=== PATIENT | male | born 1950 | race Caucasian/White ===

== ENCOUNTER 2021-05-17 13:46 | Observation (INO) ==
[2021-05-17] MEDS ORDERED: Isovue-370 500 ML BOTTLE IVP ONE (15:59)
[2021-05-17] MEDS ORDERED: Ipratropium/Albuterol Neb 3 ML IH ONE (15:59)
[2021-05-17 16:25] LABS: Basophils % 0.1 %; Immature Granulocytes % 0.8 % (0-4); Lymphocytes # 0.2 K/mcL (0.6-4.6); Lymphocytes % 1.4 %; Mean Corpuscular Hemoglobin 32.6 pg (28.0-33.3); Mean Corpuscular Volume 95.7 fL (83.0-100.0); Mean Platelet Volume 9.9 fL (9.4-12.4); Monocytes # 0.2 K/mcL (0.0-1.3); Monocytes % 1.6 %; Neutrophils # 14.6 K/mcL (1.6-8.9); Platelet Count 218 K/mcL (140-400); Red Blood Count 4.91 M/mcL (4.19-5.50); Red Cell Distribution Width 13.1 % (11.5-14.5); Segmented Neutrophils % 96.1 %; White Blood Count 15.2 K/mcL (4.3-11.1)
[2021-05-17 17:02] LABS: VBG HCO3 30 mEq/L (21-27); VBG PCO2 58 mmHg (41-51); VBG PH 7.32 pH Units (7.32-7.42); VBG PO2 34 mmHg (25-50)
[2021-05-17 17:04] LABS: Alanine Aminotransferase 25 Units/L (7-52); Albumin 4.6 g/dL (3.5-5.7); Alkaline Phosphatase 74 Units/L (34-104); Aspartate Amino Transferase 15 Units/L (13-39); BUN/Creatinine Ratio 20 (6-26); Bilirubin,Total 0.7 mg/dL (0.3-1.0); Blood Urea Nitrogen 13 mg/dL (8-23); Calcium 9.9 mg/dL (8.6-10.3); Carbon Dioxide 25 mEq/L (23-29); Chloride 100 mEq/L (98-107); Glucose 135 mg/dL (70-105); Osmolality,Calculated 284 (280-300); Potassium 4.6 mEq/L (3.5-5.1); Sodium 136 mEq/L (136-145); Troponin I 0.04 ng/mL (< 0.04); eGFR For African Americans > 60 (> 60); eGFR For Non-African Americans > 60 (> 60)
[2021-05-17 17:06] LABS: Albumin/Globulin Ratio 1.8 (1.1-2.2); Bilirubin,Direct 0.2 mg/dL (0.0-0.2); Bilirubin,Indirect 0.5 mg/dL (0.0-1.0); Globulin 2.6 g/dL (2.4-3.5); Total Protein 7.2 g/dL (6.4-8.9)
[2021-05-17 19:18] LABS: Influenza A PCR Negative (Negative); Influenza B PCR Negative (Negative); Resp. Syncytial Virus PCR Negative (Negative); SARS-CoV-2 by PCR (In House) Negative (Negative)
[2021-05-17] MEDS ORDERED: Ondansetron 4 MG/2 ML VIAL IVP PRN (21:00)
[2021-05-17] MEDS ORDERED: Naloxone 0.4 MG/ML INJ IVP PRN (21:00)
[2021-05-18] MEDS: Ipratropium/Albuterol Neb 3 ML IH SCH ×7 (00:02→23:21)
[2021-05-18] MEDS: Azithromycin 500 MG in 0.9 % Sodium Chloride 250 ML IVPB SCH ×2 (00:32→23:45)
[2021-05-18] MEDS: cefTRIAXone 1,000 MG in 0.9 % Sodium Chloride Mini Bag 100 ML IVPB SCH ×2 (00:33→23:35)
[2021-05-18] MEDS: MethylPREDNISolone 40 MG/ML VIAL IVP SCH ×5 (00:33→23:34)
[2021-05-18 02:41] LABS: Basophils % 0.1 %; Hematocrit 38.6 % (37.5-50.1); Immature Granulocytes % 0.7 % (0-4); Lymphocytes # 0.9 K/mcL (0.6-4.6); Lymphocytes % 8.6 %; Mean Corpuscular Hemoglobin 33.3 pg (28.0-33.3); Mean Corpuscular Volume 95.1 fL (83.0-100.0); Monocytes # 0.9 K/mcL (0.0-1.3); Neutrophils # 8.6 K/mcL (1.6-8.9); Platelet Count 215 K/mcL (140-400); Red Blood Count 4.06 M/mcL (4.19-5.50); Segmented Neutrophils % 81.6 %; White Blood Count 10.5 K/mcL (4.3-11.1)
[2021-05-18 02:59] LABS: Hemoglobin 13.5 g/dL (12.9-16.9)
[2021-05-18 03:03] LABS: Alanine Aminotransferase 19 Units/L (7-52); Albumin 3.6 g/dL (3.5-5.7); Albumin/Globulin Ratio 1.7 (1.1-2.2); Alkaline Phosphatase 60 Units/L (34-104); Aspartate Amino Transferase 12 Units/L (13-39); BUN/Creatinine Ratio 24 (6-26); Bilirubin,Total 0.4 mg/dL (0.3-1.0); Blood Urea Nitrogen 16 mg/dL (8-23); Calcium 8.9 mg/dL (8.6-10.3); Carbon Dioxide 26 mEq/L (23-29); Chloride 102 mEq/L (98-107); Globulin 2.1 g/dL (2.4-3.5); Glucose 144 mg/dL (70-105); Osmolality,Calculated 288 (280-300); Potassium 3.9 mEq/L (3.5-5.1); Sodium 137 mEq/L (136-145); Total Protein 5.7 g/dL (6.4-8.9); eGFR For African Americans > 60 (> 60); eGFR For Non-African Americans > 60 (> 60)
[2021-05-18] MEDS: *HR* Heparin 5,000 UNIT/ML VIAL SQ SCH ×3 (06:36→22:24)
[2021-05-18] MEDS ORDERED: Azithromycin 500 MG in 0.9 % Sodium Chloride 250 ML IVPB SCH (09:00)
[2021-05-19 02:18] LABS: Basophils % 0.1 %; Hematocrit 39.4 % (37.5-50.1); Immature Granulocytes % 0.8 % (0-4); Lymphocytes # 0.5 K/mcL (0.6-4.6); Lymphocytes % 5.1 %; Mean Corpuscular Hemoglobin 31.8 pg (28.0-33.3); Mean Corpuscular Volume 96.3 fL (83.0-100.0); Mean Platelet Volume 9.8 fL (9.4-12.4); Monocytes # 0.5 K/mcL (0.0-1.3); Monocytes % 5.2 %; Neutrophils # 9.1 K/mcL (1.6-8.9); Platelet Count 236 K/mcL (140-400); Red Blood Count 4.09 M/mcL (4.19-5.50); Red Cell Distribution Width 12.9 % (11.5-14.5); Segmented Neutrophils % 88.8 %; White Blood Count 10.3 K/mcL (4.3-11.1)
[2021-05-19 02:38] LABS: BUN/Creatinine Ratio 30 (6-26); Blood Urea Nitrogen 20 mg/dL (8-23); Carbon Dioxide 27 mEq/L (23-29); Chloride 104 mEq/L (98-107); Glucose 167 mg/dL (70-105); Osmolality,Calculated 290 (280-300); Sodium 137 mEq/L (136-145); eGFR For African Americans > 60 (> 60); eGFR For Non-African Americans > 60 (> 60)
[2021-05-19] MEDS: Ipratropium/Albuterol Neb 3 ML IH SCH ×6 (03:56→23:25)
[2021-05-19] MEDS: *HR* Heparin 5,000 UNIT/ML VIAL SQ SCH ×3 (04:45→21:27)
[2021-05-19] MEDS: MethylPREDNISolone 40 MG/ML VIAL IVP SCH ×3 (04:45→16:53)
[2021-05-20] MEDS: MethylPREDNISolone 40 MG/ML VIAL IVP SCH ×4 (00:29→17:30)
[2021-05-20] MEDS: Azithromycin 500 MG in 0.9 % Sodium Chloride 250 ML IVPB SCH (00:29)
[2021-05-20] MEDS: cefTRIAXone 1,000 MG in 0.9 % Sodium Chloride Mini Bag 100 ML IVPB SCH (00:30)
[2021-05-20] MEDS: Ipratropium/Albuterol Neb 3 ML IH SCH ×5 (04:19→20:04)
[2021-05-20] MEDS: *HR* Heparin 5,000 UNIT/ML VIAL SQ SCH ×3 (05:35→20:49)
[2021-05-20 06:32] LABS: Basophils % 0.1 %; Hematocrit 40.9 % (37.5-50.1); Hemoglobin 13.3 g/dL (12.9-16.9); Immature Granulocytes % 0.7 % (0-4); Lymphocytes # 0.8 K/mcL (0.6-4.6); Lymphocytes % 7.7 %; Mean Corpuscular HGB Conc 32.5 g/dL (31.6-35.5); Mean Corpuscular Hemoglobin 31.3 pg (28.0-33.3); Mean Corpuscular Volume 96.2 fL (83.0-100.0); Mean Platelet Volume 9.9 fL (9.4-12.4); Monocytes # 0.6 K/mcL (0.0-1.3); Monocytes % 6.3 %; Neutrophils # 8.3 K/mcL (1.6-8.9); Platelet Count 234 K/mcL (140-400); Red Blood Count 4.25 M/mcL (4.19-5.50); Red Cell Distribution Width 13.1 % (11.5-14.5); Segmented Neutrophils % 85.2 %; White Blood Count 9.8 K/mcL (4.3-11.1)
[2021-05-20 06:53] LABS: BUN/Creatinine Ratio 34 (6-26); Blood Urea Nitrogen 22 mg/dL (8-23); Calcium 9.1 mg/dL (8.6-10.3); Carbon Dioxide 31 mEq/L (23-29); Chloride 104 mEq/L (98-107); Glucose 115 mg/dL (70-105); Osmolality,Calculated 294 (280-300); Potassium 4.4 mEq/L (3.5-5.1); Sodium 140 mEq/L (136-145); eGFR For African Americans > 60 (> 60); eGFR For Non-African Americans > 60 (> 60)
[2021-05-20] MEDS: Budesonide/Formoterol 160/4.5 1 PUFF INH IH SCH ×2 (11:19→20:04)
[2021-05-20] MEDS ORDERED: cefTRIAXone 1,000 MG in 0.9 % Sodium Chloride Mini Bag 100 ML IVPB SCH (21:00)
[2021-05-20] MEDS ORDERED: Azithromycin 250 MG TABLET PO SCH (21:00)
[2021-05-21] MEDS: MethylPREDNISolone 40 MG/ML VIAL IVP SCH ×4 (00:15→18:30)
[2021-05-21 02:15] LABS: Basophils % 0.1 %; Hematocrit 39.5 % (37.5-50.1); Hemoglobin 13.3 g/dL (12.9-16.9); Immature Granulocytes % 1.2 % (0-4); Lymphocytes % 12.4 %; Mean Corpuscular HGB Conc 33.7 g/dL (31.6-35.5); Mean Corpuscular Hemoglobin 32.3 pg (28.0-33.3); Mean Corpuscular Volume 95.9 fL (83.0-100.0); Mean Platelet Volume 9.8 fL (9.4-12.4); Monocytes # 0.7 K/mcL (0.0-1.3); Monocytes % 8.4 %; Platelet Count 210 K/mcL (140-400); Red Blood Count 4.12 M/mcL (4.19-5.50); Red Cell Distribution Width 12.3 % (11.5-14.5); Segmented Neutrophils % 77.9 %; White Blood Count 7.8 K/mcL (4.3-11.1)
[2021-05-21 02:35] LABS: BUN/Creatinine Ratio 32 (6-26); Blood Urea Nitrogen 18 mg/dL (8-23); Calcium 9.1 mg/dL (8.6-10.3); Carbon Dioxide 30 mEq/L (23-29); Chloride 101 mEq/L (98-107); Glucose 136 mg/dL (70-105); Osmolality,Calculated 286 (280-300); Potassium 4.3 mEq/L (3.5-5.1); Sodium 136 mEq/L (136-145); eGFR For African Americans > 60 (> 60); eGFR For Non-African Americans > 60 (> 60)
[2021-05-21] MEDS: Ipratropium/Albuterol Neb 3 ML IH SCH ×5 (03:56→15:45)
[2021-05-21] MEDS: *HR* Heparin 5,000 UNIT/ML VIAL SQ SCH ×2 (05:30→13:13)
[2021-05-21] MEDS: Budesonide/Formoterol 160/4.5 1 PUFF INH IH SCH (07:57)
[2021-05-21 15:43] VITALS: BP 162/76; PULSE 86; TEMP 97.7; O2SAT 97
== END 2021-05-21 18:48 | disposition home health service (06) ==
LOC: 2ANU 13:46 → EMEROOARM 13:46 → SUATTDRO 20:43 → 2ANU 21:38
PROVIDERS: ADMIT Internal Medicine; ATTEND Internal Medicine

== ENCOUNTER 2021-11-01 17:39 | Inpatient (IN) ==
[2021-11-01] MEDS ORDERED: Ipratropium/Albuterol Neb 3 ML IH ONE (18:04)
[2021-11-01] MEDS ORDERED: methylPREDNISolone 125 MG/2 ML VIAL IVP ONE (18:14)
[2021-11-01] MEDS ORDERED: Azithromycin 500 MG in 0.9 % Sodium Chloride 250 ML IVPB ONE (18:14)
[2021-11-01 18:58] LABS: Basophils % 0.2 %; Eosinophils % 0.1 %; Hematocrit 45.4 % (37.5-50.1); Hemoglobin 14.5 g/dL (12.9-16.9); Immature Granulocytes % 1.8 % (0-4); Lymphocytes # 0.6 K/mcL (0.6-4.6); Lymphocytes % 4.2 %; Mean Corpuscular HGB Conc 31.9 g/dL (31.6-35.5); Mean Corpuscular Hemoglobin 31.1 pg (28.0-33.3); Mean Corpuscular Volume 97.4 fL (83.0-100.0); Mean Platelet Volume 10.5 fL (9.4-12.4); Monocytes # 0.8 K/mcL (0.0-1.3); Monocytes % 5.4 %; Neutrophils # 12.5 K/mcL (1.6-8.9); Platelet Count 236 K/mcL (140-400); Red Blood Count 4.66 M/mcL (4.19-5.50); Red Cell Distribution Width 13.2 % (11.5-14.5); Segmented Neutrophils % 88.3 %; White Blood Count 14.2 K/mcL (4.3-11.1)
[2021-11-01 19:14] LABS: BUN/Creatinine Ratio 35 (6-26); Blood Urea Nitrogen 25 mg/dL (8-23); Calcium 9.2 mg/dL (8.6-10.3); Carbon Dioxide 38 mEq/L (23-29); Chloride 93 mEq/L (98-107); Glucose 89 mg/dL (70-105); Osmolality,Calculated 292 (280-300); Potassium 4.1 mEq/L (3.5-5.1); Sodium 139 mEq/L (136-145); eGFR For African Americans > 60 (> 60); eGFR For Non-African Americans > 60 (> 60)
[2021-11-01 19:24] LABS: Troponin I 0.22 ng/mL (< 0.04)
[2021-11-01] MEDS ORDERED: *HR* Heparin 5,000 UNIT/ML VIAL IVP PRN ×2 (19:58)
[2021-11-01] MEDS ORDERED: *HR* Heparin 5,000 UNIT/ML VIAL IVP ONE (19:58)
[2021-11-01] MEDS ORDERED: Heparin 25,000UNIT/250ML 1/2NS 25,000 UNIT/250 ML IV.SOLN IVC SCH (20:00)
[2021-11-01 20:11] LABS: Heparin anti-factor XA UFH 0.05 IU/mL (0.30-0.70)
[2021-11-01 20:12] LABS: INR 0.9
[2021-11-01 20:26] LABS: Activated Partial Thrombo Time 28.4 Seconds (26.0-36.0)
[2021-11-01] MEDS ORDERED: Acetaminophen 325 MG TABLET PO PRN (22:07)
[2021-11-01] MEDS ORDERED: Naloxone 0.4 MG/ML INJ IVP PRN (22:07)
[2021-11-01] MEDS: Levalbuterol Neb 1.25 MG/3 ML IH SCH (22:22)
[2021-11-01 22:42] LABS: ABG Base Excess 8 mEq/L (-2 to 3); ABG HCO3 35 mEq/L (21-27); ABG Oxygen Saturation 99 % (95-98); ABG PCO2 59 mmHg (35-45); ABG PH 7.39 pH Units (7.32-7.45); ABG PO2 120 mmHg (85-104); ABG TCO2 37 mEq/L (20-26)
[2021-11-01] MEDS: methylPREDNISolone 125 MG/2 ML VIAL IVP SCH (23:50)
[2021-11-02] MEDS ORDERED: Morphine Sulfate 2 MG/ML SYRINGE IVP PRN (00:47)
[2021-11-02 03:00] LABS: Hematocrit 39.6 % (37.5-50.1); Mean Corpuscular HGB Conc 32.8 g/dL (31.6-35.5); Mean Corpuscular Hemoglobin 30.5 pg (28.0-33.3); Mean Platelet Volume 10.5 fL (9.4-12.4); Platelet Count 182 K/mcL (140-400); Red Blood Count 4.26 M/mcL (4.19-5.50); Red Cell Distribution Width 13.2 % (11.5-14.5)
[2021-11-02 03:19] LABS: BUN/Creatinine Ratio 40 (6-26); Blood Urea Nitrogen 21 mg/dL (8-23); Calcium 8.7 mg/dL (8.6-10.3); Carbon Dioxide 36 mEq/L (23-29); Chloride 97 mEq/L (98-107); Chol/HDL Ratio 2.4 (0-4.9); Cholesterol 148 mg/dL (< 200); Glucose 147 mg/dL (70-105); HDL Cholesterol 61 mg/dL (40-59); LDL Cholesterol,Calculated 71 mg/dL (< 100); Magnesium 2.2 mg/dL (1.6-2.6); Osmolality,Calculated 288 (280-300); Potassium 3.8 mEq/L (3.5-5.1); Sodium 136 mEq/L (136-145); Triglycerides 78 mg/dL (< 150); eGFR For African Americans > 60 (> 60); eGFR For Non-African Americans > 60 (> 60)
[2021-11-02] MEDS: Levalbuterol Neb 1.25 MG/3 ML IH SCH ×4 (03:53→20:07)
[2021-11-02] MEDS ORDERED: Perflutren Lipid Microsphere 1.3 ML in 0.9 % Sodium Chloride 8.7 ML IVP PRN (06:59)
[2021-11-02] MEDS: methylPREDNISolone 125 MG/2 ML VIAL IVP SCH (07:52)
[2021-11-02] MEDS: Furosemide 20 MG/2 ML VIAL IVP SCH ×2 (07:53→20:56)
[2021-11-02] MEDS: Aspirin 81 MG TAB.CHEW PO SCH (13:54)
[2021-11-02] MEDS: carvediloL 6.25 MG TABLET PO SCH ×2 (13:55→17:26)
[2021-11-02] MEDS: lisinopriL 5 MG TABLET PO SCH (13:55)
[2021-11-02 16:59] LABS: Hematocrit 39.4 % (37.5-50.1); Mean Corpuscular Hemoglobin 30.7 pg (28.0-33.3); Mean Corpuscular Volume 93.1 fL (83.0-100.0); Mean Platelet Volume 10.9 fL (9.4-12.4); Platelet Count 204 K/mcL (140-400); Red Blood Count 4.23 M/mcL (4.19-5.50); Red Cell Distribution Width 13.1 % (11.5-14.5); White Blood Count 12.6 K/mcL (4.3-11.1)
[2021-11-02] MEDS: MethylPREDNISolone 40 MG/ML VIAL IVP SCH ×2 (17:26→23:11)
[2021-11-02] MEDS: Azithromycin 500 MG in 0.9 % Sodium Chloride 250 ML IVPB SCH (17:26)
[2021-11-03] MEDS: Levalbuterol Neb 1.25 MG/3 ML IH SCH ×4 (03:43→19:50)
[2021-11-03] MEDS: Furosemide 20 MG/2 ML VIAL IVP SCH ×2 (07:23→20:23)
[2021-11-03] MEDS: lisinopriL 5 MG TABLET PO SCH (07:23)
[2021-11-03] MEDS: carvediloL 6.25 MG TABLET PO SCH ×2 (07:23→16:50)
[2021-11-03] MEDS: Aspirin 81 MG TAB.CHEW PO SCH (07:24)
[2021-11-03] MEDS: *HR* Heparin 5,000 UNIT/ML VIAL SQ SCH ×3 (07:24→20:23)
[2021-11-03 07:25] LABS: Hematocrit 40.3 % (37.5-50.1); Hemoglobin 13.3 g/dL (12.9-16.9); Mean Corpuscular Hemoglobin 31.3 pg (28.0-33.3); Mean Corpuscular Volume 94.8 fL (83.0-100.0); Mean Platelet Volume 10.9 fL (9.4-12.4); Platelet Count 202 K/mcL (140-400); Red Blood Count 4.25 M/mcL (4.19-5.50); Red Cell Distribution Width 13.1 % (11.5-14.5); White Blood Count 14.5 K/mcL (4.3-11.1)
[2021-11-03 07:51] LABS: BUN/Creatinine Ratio 47 (6-26); Blood Urea Nitrogen 25 mg/dL (8-23); Calcium 8.9 mg/dL (8.6-10.3); Carbon Dioxide 39 mEq/L (23-29); Chloride 97 mEq/L (98-107); Glucose 116 mg/dL (70-105); Osmolality,Calculated 295 (280-300); Potassium 3.8 mEq/L (3.5-5.1); Sodium 140 mEq/L (136-145); Troponin I 0.09 ng/mL (< 0.04); eGFR For African Americans > 60 (> 60); eGFR For Non-African Americans > 60 (> 60)
[2021-11-03] MEDS: Azithromycin 500 MG in 0.9 % Sodium Chloride 250 ML IVPB SCH (16:50)
[2021-11-03] MEDS ORDERED: MethylPREDNISolone 40 MG/ML VIAL IVP SCH (18:00)
[2021-11-03] MEDS: Budesonide/Formoterol 160/4.5 1 PUFF INH IH SCH (20:00)
[2021-11-03] MEDS ORDERED: Ipratropium/Albuterol Neb 3 ML IH PRN (23:00)
[2021-11-04 01:43] LABS: Basophils % 0.2 %; Eosinophils % 0.1 %; Hematocrit 40.3 % (37.5-50.1); Hemoglobin 13.2 g/dL (12.9-16.9); Immature Granulocytes % 1.3 % (0-4); Lymphocytes % 8.5 %; Mean Corpuscular HGB Conc 32.8 g/dL (31.6-35.5); Mean Corpuscular Hemoglobin 31.3 pg (28.0-33.3); Mean Corpuscular Volume 95.5 fL (83.0-100.0); Mean Platelet Volume 11.1 fL (9.4-12.4); Monocytes # 0.9 K/mcL (0.0-1.3); Neutrophils # 9.2 K/mcL (1.6-8.9); Platelet Count 188 K/mcL (140-400); Red Blood Count 4.22 M/mcL (4.19-5.50); Segmented Neutrophils % 81.9 %; White Blood Count 11.2 K/mcL (4.3-11.1)
[2021-11-04 01:50] LABS: Albumin 3.3 g/dL (3.5-5.7); Albumin/Globulin Ratio 1.9 (1.1-2.2); Bilirubin,Direct 0.1 mg/dL (0.0-0.2); Bilirubin,Indirect 0.4 mg/dL (0.0-1.0); Bilirubin,Total 0.5 mg/dL (0.3-1.0); Globulin 1.7 g/dL (2.4-3.5)
[2021-11-04 01:55] LABS: BUN/Creatinine Ratio 49 (6-26); Blood Urea Nitrogen 27 mg/dL (8-23); Calcium 8.5 mg/dL (8.6-10.3); Carbon Dioxide 40 mEq/L (23-29); Chloride 96 mEq/L (98-107); Glucose 141 mg/dL (70-105); Osmolality,Calculated 295 (280-300); Potassium 3.7 mEq/L (3.5-5.1); Sodium 139 mEq/L (136-145); eGFR For African Americans > 60 (> 60); eGFR For Non-African Americans > 60 (> 60)
[2021-11-04] MEDS: Levalbuterol Neb 1.25 MG/3 ML IH SCH ×4 (03:50→19:41)
[2021-11-04] MEDS: *HR* Heparin 5,000 UNIT/ML VIAL SQ SCH ×3 (05:08→20:15)
[2021-11-04] MEDS: Furosemide 20 MG/2 ML VIAL IVP SCH ×2 (07:41→20:14)
[2021-11-04] MEDS: predniSONE 20 MG TABLET PO SCH (07:41)
[2021-11-04] MEDS: Aspirin 81 MG TAB.CHEW PO SCH (07:41)
[2021-11-04] MEDS: lisinopriL 5 MG TABLET PO SCH (07:41)
[2021-11-04] MEDS: carvediloL 6.25 MG TABLET PO SCH ×2 (07:41→17:42)
[2021-11-04] MEDS: Roflumilast [Daliresp] 500 MCG Tablet PO SCH (07:42)
[2021-11-04] MEDS ORDERED: Perflutren Lipid Microsphere 1.3 ML in 0.9 % Sodium Chloride 8.7 ML IVP PRN (09:06)
[2021-11-04] MEDS: Budesonide/Formoterol 160/4.5 1 PUFF INH IH SCH ×2 (09:52→19:41)
[2021-11-04] MEDS: Spironolactone 12.5 MG TABLET PO SCH (12:26)
[2021-11-04] MEDS: Azithromycin 500 MG in 0.9 % Sodium Chloride 250 ML IVPB SCH (17:42)
[2021-11-05] MEDS: Levalbuterol Neb 1.25 MG/3 ML IH SCH ×3 (03:36→15:12)
[2021-11-05] MEDS ORDERED: Ipratropium/Albuterol Neb 3 ML IH PRN (03:38)
[2021-11-05] MEDS: *HR* Heparin 5,000 UNIT/ML VIAL SQ SCH ×2 (05:20→14:30)
[2021-11-05] MEDS ORDERED: *HR* LORazepam 2 MG/ML VIAL IVP ONE (06:28)
[2021-11-05 07:17] VITALS: TEMP 98.1
[2021-11-05] MEDS: predniSONE 20 MG TABLET PO SCH (08:07)
[2021-11-05] MEDS: carvediloL 6.25 MG TABLET PO SCH ×2 (08:07→16:53)
[2021-11-05] MEDS: lisinopriL 5 MG TABLET PO SCH (08:08)
[2021-11-05] MEDS: Aspirin 81 MG TAB.CHEW PO SCH (08:08)
[2021-11-05] MEDS: Spironolactone 12.5 MG TABLET PO SCH (08:09)
[2021-11-05] MEDS: Furosemide 20 MG/2 ML VIAL IVP SCH (08:09)
[2021-11-05] MEDS ORDERED: ISOVUE-370 200 ML INFUS..BTL ONE (09:43)
[2021-11-05] MEDS ORDERED: 0.9 % Sodium Chloride 2,000 ML ONE (09:43)
[2021-11-05] MEDS ORDERED: Heparin 1,000 UNITS/500 mL 500 ML ONE (09:43)
[2021-11-05] MEDS ORDERED: *HR* Heparin 10,000 UNIT/10 ML VIAL ONE (09:43)
[2021-11-05] MEDS ORDERED: Nitroglycerin 1,000 MCG/5 ML VIAL IV ONE (09:43)
[2021-11-05] MEDS ORDERED: 0.9 % Sodium Chloride 1,000 ML ONE (09:48)
[2021-11-05] MEDS ORDERED: *HR* Midazolam HCl 2 MG/2 ML VIAL ONE (10:16)
[2021-11-05] MEDS ORDERED: *HR* FentaNYL (PF) 100 MCG/2 ML VIAL ONE ×2 (10:16→10:18)
[2021-11-05] MEDS: Budesonide/Formoterol 160/4.5 1 PUFF INH IH SCH (10:52)
[2021-11-05] MEDS: Roflumilast [Daliresp] 500 MCG Tablet PO SCH (10:54)
[2021-11-05 11:10] VITALS: O2SAT 92
[2021-11-05 11:48] VITALS: PULSE 72
[2021-11-05 12:38] VITALS: BP 98/58
== END 2021-11-05 17:30 | disposition home or self-care (01) | DRG 281 ==
LOC: 2ANU 17:39 → EMEROOARM 17:39 → 2ANU 21:02
PROVIDERS: ADMIT Internal Medicine; ATTEND Internal Medicine